=== PATIENT | male | born 1960 | race African-American/Black ===

== ENCOUNTER 2023-08-11 15:10 | Emergency (ER) | payer MEDICARE, SELFPAY ==
[2023-08-11 15:15] VITALS: BP 146/70; PULSE 86; RESP 20; TEMP 36; O2SAT 97
--- NOTE | 2023-08-11 16:07 | ED.DENTAL ---
HPI - Dental/Oral General Chief complaint: Dental/Oral Stated complaint: Tooth pain Time Seen by Provider: 08/11/23 15:43 Source: patient Mode of arrival: ambulatory Limitations: no limitations History of Present Illness HPI Narrative: 62-year-old with a history of hypertension, hyperlipidemia here with a complaint of dental pain since yesterday. Patient states that he is scheduled for a dental appointment on September 10 however he was able to get an emergency appointment on . He denies any fever or chills. Patient states that he ate pistachios last night might have aggravated it. Location: Tooth # (17) Onset (ago): day(s) (1) Duration: constant Severity: moderate Relieving factors: nothing Exacerbating factors: nothing Context: history of dental caries Treatment prior to arrival: topical analgesic Related Data Allergies Allergy/AdvReac Type Severity Reaction Status Date / Time No Known Allergies Allergy Verified 08/11/23 15:17 Review of Systems Review of Systems: All systems reviewed & are unremarkable except as noted in HPI and below Constitutional: Constitutional: Reports no additional constitutional complaints Eyes: Eyes: Reports no additional eye complaints ENT: Reports system reviewed and no additional complaints, except as documented Cardiovascular: Cardiovascular: Reports no additional cardiovascular complaints Respiratory: Respiratory: Reports no additional respiratory complaints Gastrointestinal: Gastrointestinal: Reports no additional gastrointestinal complaints Musculoskeletal: Musculoskeletal: Reports no additional musculoskeletal complaints Neurologic: Reports system reviewed and no additional complaints, except as documented Exam Narrative: GENERAL: Well-appearing, well-nourished, and in no acute distress. HEAD: Normocephalic, atraumatic. EYES: PERRLA and EOMI. ENT: Nares clear, no rhinorrhea or epistaxis. Mucous membranes moist. Dental caries 17. No evidence of abscess or gingivitis NECK: Supple. CHEST: Clear to auscultation. No respiratory distress. HEART: Regular rate and rhythm. No murmur heard. Normal peripheral pulses. EXTREMITIES: Normal range of motion. No edema. SKIN: Warm, dry, no rash. NEURO: No focal deficits. Alert and oriented x3. PSYCH: Normal mood and affect. Course Vital Signs Vital signs: Vital Signs Temperature 36.0 C L 08/11/23 15:15 Pulse Rate 86 08/11/23 15:15 Respiratory Rate 20 08/11/23 15:15 Blood Pressure 146/70 H 08/11/23 15:15 Pulse Oximetry 97 08/11/23 15:15 Oxygen Delivery Room Air 08/11/23 15:15 Temperature 36.0 C L 08/11/23 15:15 Pulse Rate 86 08/11/23 15:15 Respiratory Rate 20 08/11/23 15:15 Blood Pressure 146/70 H 08/11/23 15:15 Pulse Oximetry 97 08/11/23 15:15 Oxygen Delivery Room Air 08/11/23 15:15 Discharge Plan Discharge Clinical Impression: Dental caries Patient Disposition: Home, Self-Care Condition: Stable Instructions: Toothache (ED) Additional Instructions: Take antibiotic as prescribed, follow-up with her dentist as scheduled Prescriptions: New amoxicillin 875 mg tablet 875 mg PO Q12H Qty: 20 0RF hydrocodone-acetaminophen 5-325 mg tablet 1 tablet PO Q8H PRN (Reason: pain) Qty: 14 0RF Follow-up/Referrals: Ashley,Ninoska [Other] Stand Alone Forms: Work/School Release IP Time of Disposition: 16:19
== END 2023-08-11 16:28 | disposition home or self-care (01) ==
PROVIDERS: Emergency Provider Family Medicine
DX: K02.9 Dental caries, unspecified (principal); I10 Essential (primary) hypertension; E78.5 Hyperlipidemia, unspecified
CPT/HCPCS: 99199; 99283

== ENCOUNTER 2023-09-06 09:03 | Outpatient (CLI) | payer MEDICARE, SELFPAY ==
--- NOTE | ~2023-09-06 | XR_ITS ---
[id number] Ordering provider: Torrey Galarza MD History: . PAIN IN KNEES . Comparison: None. FINDINGS: BONES: small chip of bone seen adjacent to the medial femoral condyle which may represent avulsion fr acture or ossification of the medial collateral ligament. JOINT SPACES: Normal. SOFT TISSUES: Normal. Vascular calcification. IMPRESSION: Possible avulsion fracture in the medial femoral condyle versus ossification the medial collateral li gament. Clinical evaluation for tenderness in the area advised. Reviewed, dictated and finalized at location A. IMPRESSION: Possible avulsion fracture in the medial femoral condyle versus ossification th e medial collateral ligament. Clinical evaluation for tenderness in the area ad vised.
--- NOTE | ~2023-09-06 | XR_ITS ---
3 VIEWS LUMBAR SPINE Ordering provider: Torrey Galarza MD History: . RADICULOPATHY CERV,THORACIC, LUMBAR . Comparison: None. FINDINGS: VERTEBRAL BODIES: No visible fracture or subluxation. Degenerative changes of the spine. DISK SPACES: Narrowing of the disc L1-L2 and L2-L3. SOFT TISSUES: Vascular calcifications.. IMPRESSION: No acute osseous abnormality lumbar spine. Reviewed, dictated and finalized at location A.
--- NOTE | ~2023-09-06 | XR_ITS ---
[id number] Ordering provider: Torrey Galarza MD History: . PAIN IN KNEES . Comparison: None. FINDINGS: BONES: No acute fracture or dislocation. JOINT SPACES: Normal. SOFT TISSUES: Normal. IMPRESSION: No acute osseous abnormality right knee. Reviewed, dictated and finalized at location A.
--- NOTE | ~2023-09-06 | XR_ITS ---
3 VIEWS THORACIC SPINE Ordering provider: Torrey Galarza MD History: . RADICULOPATHY CERV,THORACIC, LUMBAR . Comparison: None. FINDINGS: VERTEBRAL BODIES: Normal height and alignment. No visible fracture or subluxation. DISK SPACES: Narrowing of the disc T12-L1, L1-L2 and L2-L3. SOFT TISSUES: Normal. IMPRESSION: No acute osseous abnormality of the thoracic spine. Reviewed, dictated and finalized at location A.
--- NOTE | ~2023-09-06 | XR_ITS ---
[id number] Ordering provider: Torrey Galarza MD History: . RADICULOPATHY CERV,THORACIC, LUMBAR . Comparison: None. FINDINGS: VERTEBRAL BODIES: Normal height and alignment. No visible fracture or subluxation. The dens is intact . DISK SPACES: Narrowing of the disc C5-C6 and C6-C7. Multilevel uncovertebral joint osteoarthritic gustavo nges. PARASPINOUS SOFT TISSUES: No prevertebral soft tissue swelling. IMPRESSION: No acute osseous abnormality cervical spine. Reviewed, dictated and finalized at location A.
== END 2023-09-06 09:04 ==
PROVIDERS: PCP Pain Medicine Interventional Pain Medicine; Visit Provider Pain Medicine Interventional Pain Medicine
DX: M54.17 Radiculopathy, lumbosacral region (principal); M54.14 Radiculopathy, thoracic region; M54.12 Radiculopathy, cervical region; F41.1 Generalized anxiety disorder; F33.1 Major depressive disorder, recurrent, moderate; F17.210 Nicotine dependence, cigarettes, uncomplicated; M17.9 Osteoarthritis of knee, unspecified
CPT/HCPCS: 72040; 72070; 72100; 73560

== ENCOUNTER 2023-12-23 09:37 | Emergency (ER) | payer MEDICARE, SELFPAY ==
--- NOTE | ~2023-12-23 | CT_ITS ---
EXAMINATION: CT lumbar spine wo con DATE: 12/23/2023 10:37 INDICATION: Right low back pain TECHNIQUE: Computed tomography (CT) of the lumbar spine was performed without intravenous contrast. A utomated exposure control and iterative reconstruction technique were employed. The dose-length produ ct was 1075.19 mGy-cm. COMPARISON: Radiograph dated 09/06/2023 FINDINGS: 8 degree lumbar dextrocurvature. Sagittal alignment is normal. Vertebral body heights are normal. Mil d disc height loss at L1-L2 and with left-sided prominence at L2-L3 and L3-L4. Mild bilateral sacroil iac osteoarthritis. Paravertebral soft tissues are unremarkable. The following disc levels are specif ically discussed: T10-T11: The disc does not extend beyond the endplate margin. There is moderate bilateral facet joint osteoarthritis. There is mild bilateral neural foraminal stenosis. There is no central canal stenosi s. T11-T12: The disc does not extend beyond the endplate margin. There is mild bilateral facet joint ost eoarthritis. There is no neural foraminal stenosis. There is no central canal stenosis. T12-L1: The disc does not extend beyond the endplate margin. There is mild bilateral facet joint oste oarthritis. There is no neural foraminal stenosis. There is no central canal stenosis. L1-L2: Disc is bulging. There is mild right and mild to moderate left facet joint osteoarthritis. The re is mild to moderate bilateral neural foraminal stenosis. There is mild central canal stenosis. L2-L3: Disc is bulging. There is mild bilateral facet joint osteoarthritis. There is moderate bilater al neural foraminal stenosis. There is mild central canal stenosis. L3-L4: Disc is bulging. There is mild bilateral facet joint osteoarthritis. There is moderate bilater al, left greater than right neural foraminal stenosis. There is mild central canal stenosis. L4-L5: Disc is bulging. There is mild bilateral facet joint osteoarthritis. There is moderate bilater al neural foraminal stenosis. There is mild central canal stenosis. L5-S1: Disc is bulging. There is mild bilateral facet joint osteoarthritis. There is mild bilateral n eural foraminal stenosis. There is mild central canal stenosis. IMPRESSION: 1. 8 degrees lumbar dextrocurvature with mild spondylosis. Reviewed, dictated and finalized at location A.
--- NOTE | ~2023-12-23 | XR_ITS ---
EXAMINATION: XR pelvis 1-2V DATE: 12/23/2023 10:59 INDICATION: Uncontrollable right hip pain TECHNIQUE: An anteroposterior view of the pelvis was obtained. COMPARISON: None. FINDINGS: Bone alignment is normal. No fracture or suspected osteonecrosis. Bone island at the left femoral nec k. Mild bilateral hip and sacroiliac osteoarthritis. Atherosclerotic calcifications and left-sided ph lebolith in the pelvis. IMPRESSION: 1. Mild bilateral hip and sacroiliac osteoarthritis. Reviewed, dictated and finalized at location A.
[2023-12-23 09:50] VITALS: BP 144/73; PULSE 92; RESP 16; TEMP 36.6; O2SAT 100
[2023-12-23] MEDS: ORPHENADRINE CITRATE 100 MG TABLET.ER PO (10:07)
[2023-12-23] MEDS: KETOROLAC 30 MG/ML VIAL (*BKC) IV PUSH (10:07)
[2023-12-23 10:30] VITALS: BP 162/80; PULSE 88; RESP 16; TEMP 36.6; O2SAT 98
--- NOTE | 2023-12-23 10:47 | ED.LOWEXIN ---
HPI - Extremity Injury (Lower) General Chief Complaint: Extremity Injury, Lower Stated Complaint: RLE pain Time Seen by Provider: 12/23/23 09:37 Source: patient and EMS Mode of arrival: EMS Limitations: no limitations History of Present Illness HPI Narrative: This is a 63-year-old male, with history of neuropathy, brought in by EMS from home for severe right leg pain. The patient states the pain woke him from sleep pain is rated 10/10. He describes the pain as burning and sharp extending from the hip to the foot. He denies any recent trauma or change in medications. He denies fevers, chills, loss of sensation in the groin or loss of bowel or bladder control. He has no other complaints at this time. Related Data Allergies Allergy/AdvReac Type Severity Reaction Status Date / Time No Known Allergies Allergy Verified 08/11/23 15:17 Review of Systems Review of Systems: All systems reviewed & are unremarkable except as noted in HPI and below PMFSH Past Medical History Medical History Neuropathy Surgical History Surgical History No significant past surgical history Social History Social History Smoking status: Never smoker Alcohol intake: current Substance use: current Exam Narrative: GENERAL: Well-developed, well-nourished, in moderate distress due to pain. Diaphoretic HEAD: Normocephalic, atraumatic. EYES: PERRLA and EOMI. CHEST: Clear to auscultation. No respiratory distress. No wheezes rales or rhonchi HEART: Regular rate and rhythm. No murmur heard. Normal peripheral pulses. ABDOMEN: Soft, nontender, nondistended, normal active bowel sounds. EXTREMITIES: No obvious deformity, no significant tenderness to palpation. Normal range of motion. No edema. SKIN: Warm, dry, no rash. No noted cyanosis NEURO: Alert and oriented x3. No focal deficit. Moving all 4 limbs spontaneously. Sensation intact bilaterally PSYCH: Normal mood and affect. 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 However, there is no noted spinal cord compression or fracture. X-ray of the pelvis not concerning for fracture dislocation. The patient was given Toradol, morphine and nor flex with gradual improvement of his pain. His neurologic and vascular exam remains intact. I suspect his pain is related to severe radiculopathy. Will discharge with recommendation for primary care and Neurosurgery follow-up. I discussed the findings and recommendations with the patient and his family member. Discussed return and emergency precautions including signs/symptoms of cauda equina, epidural abscess and neurovascular compromise. The patient voiced understanding and agreement with the plan. All questions answered to his satisfaction. Vital Signs Vital signs: Vital Signs Temperature 97.8 F 12/23/23 09:50 Pulse Rate 92 12/23/23 09:50 Respiratory Rate 16 12/23/23 09:50 Blood Pressure 144/73 H 12/23/23 09:50 Pulse Oximetry 100 12/23/23 09:50 Oxygen Delivery Room Air 12/23/23 09:50 Temperature 97.8 F 12/23/23 09:50 Pulse Rate 92 12/23/23 09:50 Respiratory Rate 16 12/23/23 09:50 Blood Pressure 144/73 H 12/23/23 09:50 Pulse Oximetry 100 12/23/23 09:50 Oxygen Delivery Room Air 12/23/23 09:50 MDM - Extremity Injury (Lower) MDM Narrative Medical decision making narrative: Plan: Imaging, pain control, reassess Differential Diagnosis Differential diagnosis: Likely other (Neuropathy, spinal cord compression, fracture, contusion, reassess) Discharge Plan Discharge Clinical Impression: Acute pain of right lower extremity Radiculopathy Qualifiers: Spinal region: lumbar Qualified Code(s): M54.16 - Radi
[2023-12-23] MEDS: MORPHINE SULFATE (*CRX) 4 MG/ML INJ IM (10:51)
[2023-12-23 11:30] VITALS: BP 164/82; PULSE 86; RESP 16; TEMP 36.8; O2SAT 99
[2023-12-23] MEDS: ACETAMINOPHEN 500 MG TABLET 1000 MG PO (11:42)
[2023-12-23] MEDS: predniSONE 20 MG TABLET 60 MG PO (11:43)
== END 2023-12-23 12:05 | disposition home or self-care (01) ==
PROVIDERS: Emergency Provider Preventive Medicine Aerospace Medicine; PCP Pain Medicine Interventional Pain Medicine
DX: M51.361 Other intervertebral disc degeneration, lumbar region with lower extremity pain only (principal); M54.16 Radiculopathy, lumbar region; M79.604 Pain in right leg
CPT/HCPCS: 72131; 72170; 96372; 96374; 99284; A9270; J1885; J2270; J7512

== ENCOUNTER 2024-02-06 08:53 | Outpatient (CLI) | payer MEDICARE, SELFPAY ==
--- NOTE | ~2024-02-06 | MR_ITS ---
MRI of the lumbar spine Clinical History: Back pain Technique: Axial T2-weighted images, and sagittal T1-weighted, T2-weighted, and T2 fat-sat images wer e acquired. Findings: No fracture seen. There is minimal grade 1 retrolisthesis of L2 over L3. There is mild diff use hypointense T1 marrow signal, compatible with marrow conversion. No suspicious marrow signal abno rmalities seen. At L1-L2, there is mild degenerative change. There is mild disc bulge and mild to moderate facet arth ropathy. No maria c central canal stenosis. There is mild bilateral neural foraminal narrowing, right w orse than left. At L2-L3, there is moderate degenerative disc narrowing. There is diffuse disc bulge with mild facet arthropathy. No central canal stenosis. There is moderate bilateral neural foraminal narrowing, left worse than right. At L3-L4, there is moderate degenerative disc narrowing. There is diffuse disc bulge with mild to mod erate facet arthropathy. There is minimal central canal stenosis. There is moderate to severe bilater al neural foraminal narrowing, left worse than right. At L4-L5, there is mild disc bulge with mild facet arthropathy. There is mild central canal stenosis. There is severe bilateral neural foraminal narrowing, left worse than right. At L5-S1, there is central disc protrusion with mild to moderate facet arthropathy. There is mild to moderate thecal sac compression. Neural foramina are preserved. Paravertebral soft tissues are unremarkable. Impression: Moderate to advanced degenerative spondylosis, as above, with multilevel neural foraminal narrowing. Minimal grade 1 retrolisthesis of L2 over L3. Reviewed, dictated and finalized at [facility]. 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 Minimal grade 1 retrolisthesis of L2 over L3.
--- NOTE | ~2024-02-06 | MR_ITS ---
EXAMINATION: MR hip RT wo con DATE: 02/06/2024 10:31 INDICATION: Right hip pain. TECHNIQUE: Magnetic resonance imaging (MRI) of the right hip was performed without intravenous contra st. COMPARISON: Pelvis radiograph 12/23/2023 FINDINGS: Bones/cartilage: Alignment is normal. No fracture. There is mild osteoarthritis of the hips. Small [id number] image s of right hip demonstrate partial-thickness cartilage loss and tiny osteophytes. There is moderate l ower lumbar spondylosis. Labrum: There is a tear of the right acetabular labrum. Fluid: There is no hip joint effusion. There is mild bilateral trochanter bursitis. Soft tissues: The hamstring origins are normal. There is mild tendinopathy of the iliopsoas tendons. The gluteus mi nimus and gluteus medius tendons are normal. IMPRESSION: 1. Mild osteoarthritis of the hips. Reviewed, dictated and finalized at location A. CY SPECIALIST
--- NOTE | ~2024-02-06 | MR_ITS ---
MRI of the cervical spine Clinical History: Neck pain Technique: Axial T2-weighted and gradient images, and sagittal T1-weighted, T2-weighted, and STIR rodri ges were acquired. Findings: There is reversal of the normal cervical lordosis. No fracture or subluxation seen. No susp icious bone marrow signal abnormality seen. C2-C3, there is no disc bulge or herniation. There is bilateral facet arthropathy, right worse than l eft with mild right neural foraminal narrowing. No canal stenosis or cord compression. At C3-C4, there is minimal disc osteophyte complex. There is probable left facet arthropathy and mild right facet arthropathy. There is bilateral neural foraminal narrowing. No canal stenosis or cord co mpression. At C4-C5, there is disc ossify complex and bilateral mild facet arthropathy. There is bilateral neura l foraminal narrowing, left worse than right. No canal stenosis or cord compression. At C5-C6, there is advanced degenerative disc narrowing. There is disc osteophyte complex, resulting in mild to moderate canal stenosis and possible minimal flattening the ventral cord. There is bilater al neural foraminal narrowing. At C6-C7, there is advanced degenerative disc narrowing with minimal disc osteophyte complex. There i s mild canal stenosis without maria c cord compression. There is bilateral neural foraminal narrowing. No abnormal signal seen in the spinal cord. Paravertebral soft tissues are unremarkable. Impression: Moderate to advanced degenerative spondylosis, as detailed above, with multilevel neural foraminal na rrowing. There is mild to moderate canal stenosis at C5-C6 with possible minimal flattening the ventr al cord. Reversal of the normal cervical lordosis. Reviewed, dictated and finalized at [facility]. [employer] PROGRAM SPECIALIST Impression: Moderate to advanced degenerative spondylosis, as detailed above, with multilev el neural foraminal narrowing. There is mild to moderate canal stenosis at C5-C 6 with possible minimal flattening the ventral cord. Reversal of the normal cervical lordosis.
== END 2024-02-06 08:54 | disposition home or self-care (01) ==
LOC: MICIMG 08:54
DX: M16.0 Bilateral primary osteoarthritis of hip (principal); M47.892 Other spondylosis, cervical region; M47.896 Other spondylosis, lumbar region
CPT/HCPCS: 72141; 72148; 73721

== ENCOUNTER 2024-04-02 15:31 | Outpatient (CLI) | payer MEDICARE, SELFPAY ==
--- NOTE | ~2024-04-02 | XR_ITS ---
XR shoulder RT min 2V Ordering provider: Gayatri Delcid MD History: . SHOULDER PAIN . Comparison: None. FINDINGS: BONES: No acute fracture or dislocation. JOINT SPACES: The acromioclavicular joint is normal. The glenohumeral joint is normal. SOFT TISSUES: Normal. IMPRESSION: No acute osseous abnormality right shoulder. Reviewed, dictated and finalized at location A. R ASSEMBLER
--- NOTE | ~2024-04-02 | XR_ITS ---
XR shoulder LT min 2V Ordering provider: Gayatri Delcid MD History: . SHOULDER PAIN . Comparison: None. FINDINGS: BONES: Possibility of lucency in the distal clavicle is noted excluded. Follow-up advised. JOINT SPACES: The acromioclavicular joint is normal. The glenohumeral joint is normal. SOFT TISSUES: Normal. IMPRESSION: Possible lucency in the distal left clavicle. Clinical evaluation for tenderness in the area is advis ed. Other appearances are unremarkable. Reviewed, dictated and finalized at location A. LINE PLANT OPERATOR IMPRESSION: Possible lucency in the distal left clavicle. Clinical evaluation for tendernes s in the area is advised. Other appearances are unremarkable.
== END 2024-04-02 15:32 | disposition home or self-care (01) ==
PROVIDERS: PCP Physical Medicine & Rehabilitation Pain Medicine; Visit Provider Physical Medicine & Rehabilitation Pain Medicine
DX: M25.512 Pain in left shoulder (principal); M25.511 Pain in right shoulder
CPT/HCPCS: 73030